=== PATIENT | male | born 1950 | race Caucasian/White ===

== ENCOUNTER → 2023-08-19 12:30 | Outpatient (REF) | payer BC, SELFPAY | LOC: RAD 12:30 | PROVIDERS: ATTENDING PHYSICIAN Internal Medicine Gastroenterology; FAMILY PHYSICIAN Family Medicine | DX: R63.4 Abnormal weight loss (principal) | CPT/HCPCS: 74177; Q9967 ==

== ENCOUNTER → 2023-12-27 14:17 | Outpatient (REF) | payer BC, SELFPAY | LOC: RAD 14:17 | PROVIDERS: ATTENDING PHYSICIAN Family Medicine | DX: R07.89 Other chest pain (principal); M25.511 Pain in right shoulder | CPT/HCPCS: 71046; 73030 ==

== ENCOUNTER → 2024-02-22 06:33 | Outpatient (REF) | payer BC, SELFPAY | LOC: MRI 3T 06:33 | PROVIDERS: ATTENDING PHYSICIAN Family Medicine | DX: K90.9 Intestinal malabsorption, unspecified (principal); E87.20 Acidosis, unspecified | CPT/HCPCS: 74181 ==

== ENCOUNTER → 2024-03-22 09:15 | Outpatient (REF) | payer BC, SELFPAY | LOC: PAVMRI 09:15 | PROVIDERS: ATTENDING PHYSICIAN Psychiatry & Neurology Neurology; FAMILY PHYSICIAN Family Medicine | DX: I67.1 Cerebral aneurysm, nonruptured (principal) | CPT/HCPCS: 70546; A9585 ==

== ENCOUNTER 2024-11-27 06:05 | Day surgery (SDC) | payer BC, SELFPAY ==
[2024-11-20 14:01] VITALS: BMI 22.7
[2024-11-27] VITALS (21 sets, daily range): BP systolic 101–152; BP diastolic 50–85; BMI 22.7
[2024-11-27] MEDS: NORMOSOL-R/PLASMALYTE-A 1000 IV (07:02)
[2024-11-27 07:03] LABS: Glucose - Point of Care 143 mg/dl (70-99)
[2024-11-27 09:12] LABS: Glucose - Point of Care 139 mg/dl (70-99)
--- NOTE | 2024-11-27 09:24 | W.IMMPOSTOP ---
Surgical Immed Post Op Note
-
Primary Surgeon: Markfer
Assisting Surgeon: -
Pre-op Diagnosis: BPH
Post-op Diagnosis: same
Procedure Performed: TURP
Anesthesia Type: gen
Specimen / Cultures: chips
Estimated Blood Loss: 1cc
Complications: none
Operative Findings: -
[2024-11-27] MEDS: NSS 1000 IV ×2 (10:36→18:10)
[2024-11-27 14:19] LABS: Glucose - Point of Care 245 mg/dl (70-99)
--- NOTE | 2024-11-27 14:53 | PTCARENOTE ---
Addendum..Accu check was 245 post breakfast and lunch. Patient declined insulin as he had never taken it before and did not wish to start that 'cycle'. Dr Vasques aware. Dr Hartman made aware as well and will order accu checks to follow up. Floor RN
made aware.
[2024-11-27 15:02] LABS: Glucose - Point of Care 364 mg/dl (70-99)
[2024-11-27 16:53] LABS: Glucose - Point of Care 309 mg/dl (70-99)
--- NOTE | 2024-11-27 17:11 | PTCARENOTE ---
Addendum entered by Melani Faulkner RN 11/27/24 17:48:
Dr Hartman aware of 309 dinner blood sugar and that there is no ordered insulin at this time. Dr Hartman stated AM labs ordered for the morning.
Original Note:
Pt arrived to [address] [place] [address]/[facility] in a bed with a connor. Connor output light pink color. Pt blood sugar in PACU 245. Upon arrival to [address] [place] [id number] blood sugar was [address] Hartman notified. Prior to dinner blood sugar 309. Pt continues to refuse insulin. Bed
locked and in lowest position. Pt oriented to room and call brandt. Care ongoing.
[2024-11-27] MEDS: DIAMOX SR SEQUELS 500 MG PO (19:45)
[2024-11-27] MEDS: SENOKOT 17.2 MG PO (19:46)
[2024-11-27] MEDS: SODIUM BICARBONATE 650 MG PO (19:46)
[2024-11-27] MEDS: TIMOPTIC 0.5% OPHTHALMIC SOLUTION 1 DROP OPHTH (19:47)
[2024-11-27] MEDS: FLOMAX 0.4 MG PO (21:36)
[2024-11-27 21:46] LABS: Glucose - Point of Care 334 mg/dl (70-99)
[2024-11-28 03:40] VITALS: BP 120/59
[2024-11-28 07:15] LABS: Hematocrit 40.9 % (39.0-52.0); Hemoglobin 14.1 g/dL (13.0-18.0)
[2024-11-28 07:40] VITALS: BP 144/70
[2024-11-28 08:29] LABS: Glucose - Point of Care 145 mg/dl (70-99)
--- NOTE | 2024-11-28 08:52 | W.PN.URO.CBU ---
Today's Communication / Plan
-
Discharge
Assessment / Plan
-
74M with BPH s/p TURP 11/27
- Connor out this AM and voided once already, mild hematuria no clots
- Continue trial of void
- Discharge this AM after voidng again
- Blood sugar returning to baseline after refusing insulin for high sugar yesterday
Diagnosis
-
Date of Service: November 28, 2024
-
Patient Diagnosis:
BPH
hyperglycemia
DM
Post Op Day:
Subjective
-
refused insulin for BG >350 multiple times
Improved this AM to normal
Pain controlled
Voided with connor out this AM
Objective
-
Vital Signs
Temp Pulse Resp BP Pulse Ox
97.6 F 72 18 120/59 99
11/28/24 07:40 11/28/24 07:40 11/28/24 07:40 11/28/24 03:40 11/28/24 07:40
Intake and Output
11/27/24 11/28/24 11/29/24
06:59 06:59 06:59
Intake Total 3810 / 3810
Output Total 3900 / 3900
Balance -90 / -90
Intake:
Oral fluids 2019
IV fluids (Total) 1790 / 1790
Normosol 665 / 665
Output:
Urine, Connor 3900 / 3900
Laboratory Results
11/28/24 06:47
Physical Exam
-
General - well developed, well nourished, no acute distress
Chest - clear bilaterally
Abdomen - soft, non-tender
[2024-11-28] MEDS: DIAMOX SR SEQUELS 500 MG PO (09:00)
[2024-11-28] MEDS: GLUCOTROL XL (EXTENDED RELEASE) 2.5 MG PO (09:00)
[2024-11-28] MEDS: LIPITOR 40 MG PO (09:01)
[2024-11-28] MEDS: ASPIR LOW (ENTERIC COATED) 81 MG PO (09:01)
[2024-11-28] MEDS: SODIUM BICARBONATE 650 MG PO (09:02)
[2024-11-28] MEDS: SENOKOT 17.2 MG PO (09:02)
[2024-11-28] MEDS: TIMOPTIC 0.5% OPHTHALMIC SOLUTION OPHTH (09:02)
[2024-11-28] MEDS: PROTONIX 20 MG PO (09:05)
--- NOTE | 2024-11-28 09:27 | CM ---
Cm reviewed medical records. Patient lives independently. Patient does not have a history of VN, SNF or DME. Patient is active with his PCP. Patient uses [facility] for medication services. Patient's son will provide transportation home.
PLAN: Home no needs
[2024-11-28 10:25] LABS: Blood Urea Nitrogen 16 mg/dl (9-20); Calcium 8.7 mg/dl (8.4-10.2); Carbon Dioxide 14 mmol/L (22-30); Chloride 116 mmol/L (98-107); Estimated Creatinine Clearance 70 ml/min; Glucose 160 mg/dl (70-99); Potassium 4.2 mmol/L (3.5-5.1); Sodium 137 mmol/L (135-145); eGFR > 60.00
--- NOTE | 2024-11-28 10:47 | W.PN.UPDATE ---
Update Note
Progress Note Update
Acidosis on labs this AM
Persistent non-gap acidosis likely due to some amount of DKA post op yesterday
Given greatly decreased blood glucose and lack of symptoms, respiratory issues, or active GI loss, would not recommend further inpt workup
Stable for discharge
== END 2024-11-28 10:47 | disposition home or self-care (01) ==
LOC: SDS 06:05
PROVIDERS: ATTENDING PHYSICIAN Urology; FAMILY PHYSICIAN Family Medicine
DX: N40.1 Benign prostatic hyperplasia with lower urinary tract symptoms (principal); N13.8 Other obstructive and reflux uropathy; E87.20 Acidosis, unspecified; E11.65 Type 2 diabetes mellitus with hyperglycemia; R31.9 Hematuria, unspecified
CPT/HCPCS: 52601; 88305; 36415; 80048; 82962; 85014; 85018; 88344; 93005